=== PATIENT | female | born 1970 | race African-American/Black ===

== ENCOUNTER 2017-10-06 13:51 | Emergency (ER) | payer OTHER ==
[~2017-10-06] VITALS: Ht 160 cm; Wt 72.6 kg
[~2017-10-06 13:51] MED LIST: HYDROCHLOROTHIA25 MG ORAL; NORCO1 EA ORAL
[2017-10-06] MEDS ORDERED: LISINOPRIL20 MG ORAL (14:02)
[2017-10-06] MEDS ORDERED: UNOBMED (14:02)
[2017-10-06] MEDS ORDERED: Promethazine/Codeine 5ml UD ORAL ONE (14:30)
[2017-10-06 14:36] VITALS: BP 156/81
[2017-10-06] MEDS ORDERED: VENTOLIN HFA18 GM INH (14:49)
[2017-10-06] MEDS ORDERED: AMOXICILLIN500 MG ORAL (14:49)
[2017-10-06] MEDS ORDERED: PROMETHAZINE-C118 M1 ORAL (14:49)
[2017-10-06] MEDS ORDERED: PREDNISONE20 MG ORAL (14:49)
[2017-10-06 15:01] VITALS: BP 156/81
--- NOTE | 2017-10-06 16:11 | Emergency Room Report ---
History of Present Illness General Chief Complaint: Flu Like Symptoms Source: Patient Present Illness HPI 47-year-old female presents ED for evaluation. Patient presents with coughing, bodyaches, chills. Symptoms started approximately one month ago. Cough is productive with yellowish phlegm. Afebrile in triage. States that she was coughing so much she nearly passed out. Admits to smoking. Has an inhaler for when she does have coughing episodes. Denies history of asthma. Denies chest pain or shortness of breath. No other aggravating relieving factors. Denies any other systems symptoms Allergies: Coded Allergies: No Known Allergies (Unverified , 02/23/13) Patient History Past Medical History: none Past Surgical History: none Pertinent Family History: none Social History: Reports: smoking, Denies: alcohol use, drug use Last Menstrual Period: 09/11/17 Now: No Immunizations: UTD Reviewed Nursing Documentation: PMH: Agreed, PSxH: Agreed Nursing Documentation-PMH Hx Cardiac Problems: Yes - Heart murmur, syncope, bradycardia Hx Hypertension: Yes Review of Systems All Other Systems: negative except mentioned in HPI Physical Exam Vital Signs Date Time Temp Pulse Resp B/P (MAP) Pulse Ox O2 Delivery O2 Flow Rate FiO2 10/06/17 13:58 98.4 98 22 173/127 98 Room Air 98.4 Sp02 EP Interpretation: reviewed, normal General Appearance: no apparent distress, alert, GCS 15, non-toxic Head: normocephalic, atraumatic Eyes: bilateral eye normal inspection, bilateral eye PERRL ENT: hearing grossly normal, normal pharynx, no angioedema, normal voice Neck: full range of motion, supple/symm/no masses Respiratory: chest non-tender, lungs clear, normal breath sounds, speaking full sentences Cardiovascular #1: regular rate, rhythm, no edema Cardiovascular #2: 2+ carotid (R), 2+ carotid (L), 2+ radial (R), 2+ radial (L) , 2+ dorsalis pedis (R), 2+ dorsalis pedis (L) Gastrointestinal: normal bowel sounds, non tender, soft, non-distended, no guarding, no rebound Rectal: deferred Genitourinary: normal inspection, no CVA tenderness Musculoskeletal: back normal, gait/station normal, normal range of motion, non- tender Neurologic: alert, oriented x3, responsive, motor strength/tone normal, sensory intact, speech normal Psychiatric: judgement/insight normal, memory normal, mood/affect normal, no suicidal/homicidal ideation Reflexes: 3+ bicep (R), 3+ bicep (L), 3+ tricep (R), 3+ tricep (L), 3+ knee (R) , 3+ knee (L) Skin: normal color, no rash, warm/dry, well hydrated Lymphatic: no adenopathy Medical Decision Making Diagnostic Impression: Primary Impression: Atypical pneumonia ER Course Hospital Course 47-year-old female presents ED complaining of bodyaches and cough x 1 month Differential diagnoses include: URI, pharyngitis, otitis media, asthma Clinical course Patient placed on stretcher. After initial history, physical exam reveals a female in no acute distress. Bilateral TM unremarkable. No pharyngeal erythema. No tonsillar exudates. No lymphadenopathy. lungs clear. abdomen soft. Presentation consistent with atypical pneumonia. Given presentation, i will prescribe abx Given promethazine/codeine here. Given Zofran here Diagnosis - atypical pneumonia Stable and discharged home with Rx amoxicillin, prednisone, albuterol, promethazine/codeine. Instructed to followup with PMD. Return to ED if symptoms recur or worsen Last Vital Signs Date Time Temp Pulse Resp B/P (MAP) Pulse Ox O2 Delivery O2 Flow Rate FiO2 10/06/17 15:01 98.4 87 22 156/81 98 Room Air 98.4 Status: improved Disposition: HOME, SELF-CARE Condition: Stable Scripts Codeine/Promethazine Hcl* (PROMETHAZINE-CODEINE SYRUP*) 118 Ml Syrup 5 ML ORAL Q4H Y for For Cough, #118 ML 0 Refills Prov: ESSIE DEAL M.D. 10/06/17 Amoxicillin* (AMOXIL*) 500 Mg Capsule 500 MG ORAL THREE TIMES A DAY, #21 CAP Prov: ESSIE DEAL M.D. 10/06/17 Prednisone* (PREDNISONE*) 20 Mg Tablet 40 MG ORAL DAILY, #10 TAB Prov: ESSIE DEAL M.D. 10/06/17 Albuterol Sulfate (VENTOLIN HFA) 18 Gm Hfa.aer.ad 2 PUFFS INH EVERY 6 HOURS, #18 GM 0 Refills Prov: ESSIE DEAL M.D. 10/06/17 Patient Instructions: Acute Bronchitis, [id number] ESSIE DEAL M.D. Oct 06, 2017 16:10
== END 2017-10-06 15:18 | disposition home or self-care (01) ==
LOC: EMR 14:05
DX: J18.9 Pneumonia, unspecified organism (principal); I10 Essential (primary) hypertension
CPT/HCPCS: 96372; 99284; J2405

== ENCOUNTER 2018-03-20 08:26 | Emergency (ER) | payer OTHER ==
[~2018-03-20] VITALS: Ht 162.6 cm; Wt 76.7 kg
[~2018-03-20 08:26] MED LIST changes: +AMOXICILLIN500 MG ORAL; +LISINOPRIL20 MG ORAL; +PREDNISONE20 MG ORAL; +PROMETHAZINE-C118 M1 ORAL; +UNOBMED; +VENTOLIN HFA18 GM INH
[2018-03-20] MEDS ORDERED: NAPROXEN375 M2 ORAL (09:01)
--- NOTE | 2018-03-20 09:01 | Emergency Room Report ---
History of Present Illness General Chief Complaint: Lower Extremity Injury Source: Patient Present Illness HPI This patient fell directly onto knees about five days ago c/o continued pain/ difficulty walking. Using crutches to assist. Both hurt but right hurts more. No other issues, no other complaints. No head trauma. No shortness of breath, no chest pain, no nausea, no vomiting, no diarrhea, no abdominal pain, no syncope, LOC, dizziness, lightheadedness, headache. Allergies: Coded Allergies: No Known Allergies (Unverified , 02/23/13) Patient History Past Medical History: none Past Surgical History: none Now: No Nursing Documentation-PMH Hx Cardiac Problems: Yes - Heart murmur, syncope, bradycardia Hx Hypertension: Yes Review of Systems Constitutional: Denies: fever Eye: Denies: acuity changes Respiratory: Denies: cough, shortness of breath Cardiovascular: Denies: chest pain Gastrointestinal: Denies: nausea, vomiting Musculoskeletal: Reports: see HPI Skin: Denies: rash Neurological: Denies: headache All Other Systems: negative except mentioned in HPI Physical Exam Vital Signs Date Time Temp Pulse Resp B/P (MAP) Pulse Ox O2 Delivery O2 Flow Rate FiO2 03/20/18 08:29 98.5 55 18 176/87 98 Room Air 98.4 General Appearance: well appearing, no apparent distress Head: normocephalic, atraumatic ENT: hearing grossly normal, normal voice Neck: full range of motion, supple Respiratory: no respiratory distress, speaking full sentences Musculoskeletal: no calf tenderness - tenderness right prepatellar, mild prepatellar effusion. no ligament laxity, no soft tissue swelling, other Neurologic: alert, normal gait Psychiatric: mood/affect normal Skin: no rash Medical Decision Making Diagnostic Impression: Primary Impression: Right knee sprain ER Course exam c/w contusion and prepatellar effusion Other X-Ray Diagnostic Results Other X-Ray Diagnostic Results : X-Ray ordered: right knee # of Views/Limited Vs Complete: 3 View Indication: Pain EP Interpretation: Yes Interpretation: no dislocation, no soft tissue swelling, no fractures Last Vital Signs Date Time Temp Pulse Resp B/P (MAP) Pulse Ox O2 Delivery O2 Flow Rate FiO2 03/20/18 08:29 98.5 55 18 176/87 98 Room Air 98.4 Disposition: HOME, SELF-CARE Condition: Stable Scripts Naproxen* (NAPROXEN*) 375 Mg Tablet. 375 MG ORAL TWICE A DAY for 10 Days, #20 TAB Prov: Griffin Kirk M.D. 03/20/18 Referrals: [facility],REFERRING (PCP) Patient Instructions: Knee Sprain Griffin Kirk M.D. Mar 20, 2018 09:01
[2018-03-20 09:35] VITALS: BP 176/87
--- NOTE | 2018-03-20 10:59 | Diagnostic Imaging Report ---
Indications: Right knee pain Technique: Three views of the right knee Comparison: None Findings: No acute fractures. No dislocations. Joint spaces are preserved. No radiopaque foreign body. Normal mineralization. There are degenerative changes of the proximal tibiofibular articulation Impression: No acute process Degenerative changes of the tibiofibular articulation, as described
== END 2018-03-20 09:35 | disposition home or self-care (01) ==
LOC: EMR 08:47
DX: S83.91XA Sprain of unspecified site of right knee, initial encounter (principal); S80.01XA Contusion of right knee, initial encounter; M25.461 Effusion, right knee; W19.XXXA Unspecified fall, initial encounter; Y92.9 Unspecified place or not applicable; Z87.898 Personal history of other specified conditions
CPT/HCPCS: 99283

== ENCOUNTER 2019-03-18 13:31 | Emergency (ER) | payer OTHER ==
[~2019-03-18] VITALS: Ht 160 cm; Wt 74.4 kg
[~2019-03-18 13:31] MED LIST changes: +NAPROXEN375 M2 ORAL
--- NOTE | 2019-03-18 13:47 | NUR ---
ED Nurse Note: PT WALKED IN TO ER TODAY FROM HOME. AOX4. PT C/O ABSCESS ON DORSAL SURFACE OF RIGHT FOOT X 1 YEAR AGO. PT STATES SHE FEELS LIKE THE ABSCESS "POPPED" LAST NIGHT. NO ACTIVE DRAINAGE OR BLEEDING. SMALL MASS NOTED TO RIGHT FOOT. PT STATES SHE HAS HAD THE ABSCESS DRAINED IN THE PAST AND THINKS IT NEEDS TO BE DONE AGAIN. PT C/O PAIN 4/10. GAIT STEADY. CIRCULATION AND SENSATION INTACT, CAP REFILL <2 SECONDS, FULL MOTILITY OF EXTREMITY AND DIGITS.
[2019-03-18 13:50] VITALS: BP 128/62
[2019-03-18] MEDS ORDERED: IBUPROFEN600 MG ORAL (14:25)
--- NOTE | 2019-03-18 14:25 | Emergency Room Report ---
History of Present Illness General Chief Complaint: Pain Present Illness HPI 48-year-old female with no significant past medical history here complaining of minimal pain and discomfort in the right foot that has been increasing for the past few days. Patient reports that she has had a mobile cyst on her right foot for the past year however has not seek any medical attention. Reports that lately she started feeling more discomfort at the site of the cyst however denies pain radiation has not taken any medication for pain. Denies tingling and numbness. Denies pus drainage, erythema at the site of the cyst, fever and chills. Patient reports that she was recently diagnosed with uterine cancer and has pending status and hysterectomy. Patient is in no apparent distress. Denies recent injury and tingling and numbness. (Fabrizio Alejandre) Allergies: Coded Allergies: No Known Allergies (Unverified , 02/23/13) Patient History Past Medical History: see triage record Past Surgical History: unable to obtain Pertinent Family History: none Last Menstrual Period: mar 2019 Now: No Immunizations: UTD Reviewed Nursing Documentation: PMH: Agreed; PSxH: Agreed (Fabrizio Alejandre) Nursing Documentation-PMH Hx Cardiac Problems: Yes - Heart murmur, syncope, bradycardia Hx Hypertension: Yes (Fabrizio Alejandre) Review of Systems All Other Systems: negative except mentioned in HPI (Fabrizio Alejandre) Physical Exam Vital Signs Date Time Temp Pulse Resp B/P (MAP) Pulse Ox O2 Delivery O2 Flow Rate FiO2 03/18/19 13:38 98.8 56 16 134/59 (84) 97 Room Air Sp02 EP Interpretation: reviewed, normal General Appearance: no apparent distress, alert, GCS 15, non-toxic Head: normocephalic, atraumatic ENT: hearing grossly normal, normal pharynx, no angioedema, normal voice Neck: full range of motion, supple/symm/no masses Respiratory: normal inspection, chest non-tender, lungs clear, no rhonchi, no retraction, no wheezing Cardiovascular #1: regular rate, rhythm, no edema Cardiovascular #2: 2+ dorsalis pedis (R), 2+ dorsalis pedis (L) Gastrointestinal: normal inspection, non tender, soft Genitourinary: no CVA tenderness Musculoskeletal: back normal, digits/nails normal, gait/station normal, normal range of motion, other - Mobile noninfected cyst noted on dorsum of right foot Neurologic: normal inspection, alert, oriented x3 Psychiatric: normal inspection, judgement/insight normal Skin: no rash Lymphatic: normal inspection, no adenopathy (Fabrizio Alejandre) Medical Decision Making PA Attestation All diagnoses and treatment plans were reviewed and discussed with my supervising physician Dr. Schrader (Fabrizio Alejandre) Diagnostic Impression: Primary Impression: Epidermal cyst ER Course 48-year-old female with no significant past medical history here complaining of minimal pain and discomfort in the right foot that has been increasing for the past few days. Patient reports that she has had a mobile cyst on her right foot for the past year however has not seek any medical attention. Reports that lately she started feeling more discomfort at the site of the cyst however denies pain radiation has not taken any medication for pain. Denies tingling and numbness. Denies pus drainage, erythema at the site of the cyst, fever and chills. Patient reports that she was recently diagnosed with uterine cancer and has pending status and hysterectomy. Patient is in no apparent distress. Denies recent injury and tingling and numbness. Ddx considered but are not limited to : Cellulitis, abscess, sebaceous cyst, epidermal cyst, lipoma Vital signs: are WNL, pt. is afebrile H&PE are most consistent with: Epidermal cyst ORDERS: Right foot x-ray, ibuprofen ED INTERVENTIONS: None required at this time. DISCHARGE: At this time pt. is stable for d/c to home. Will provide printed patient care instructions, and any necessary prescriptions. Care plan and follow up instructions have been discussed with the patient prior to discharge. I advised the patient to follow-up with a dye weigher helper as this is not a persistent needs to be trained and is not infected. Follow-up with dye weigher helper if worsening symptoms return to the emergency room take medication as directed. (Fabrizio Alejandre) Other X-Ray Diagnostic Results Other X-Ray Diagnostic Results : X-Ray ordered: Right foot # of Views/Limited Vs Complete: 3 View Indication: Pain EP Interpretation: Yes PA Xray: Interpretation reviewed, by supervising MD, and agrees with findings. Interpretation: no dislocation, no soft tissue swelling, no fractures Impression: No acute disease Electronically Signed by: Fabrizio Savage PA-C (Fabrizio Alejandre) Other X-Ray Diagnostic Results : Electronically Signed by: Erik Knox documentation of Xray reviewed by me and is accurate, Nadeem Schrader MD (Nadeem Schrader MD) Last Vital Signs Date Time Temp Pulse Resp B/P (MAP) Pulse Ox O2 Delivery O2 Flow Rate FiO2 03/18/19 13:50 98.6 62 17 128/62 99 Room Air (Fabrizio Alejandre) Disposition: HOME, SELF-CARE Condition: Stable Scripts Ibuprofen* (MOTRIN*) 600 Mg Tablet 600 MG ORAL Q8H PRN for For Pain, #30 TAB 0 Refills Prov: Fabrizio Alejandre 03/18/19 Patient Instructions: Epidermal Cyst, [id number] Additional Instructions: Take medication as directed follow-up with a dye weigher helper. Fabrizio Alejandre Mar 18, 2019 14:25 Nadeem Schrader MD Mar 19, 2019 01:08
--- NOTE | 2019-03-18 14:29 | NUR ---
ED Nurse Note: PT LAYING PEACEFULLY IN BED IN NAD. AOX4. PRESCRIPTION AND DISCHARGE PAPERWORK GIVEN TO PT. PT VERBALIZES UNDERSTANDING AND ALL QUESTIONS ANSWERED. PRESCRIPTION AND DISCHARGE PAPERWORK GIVEN TO PT AND ID WRISTBAND REMOVED. PT WALKED OUT OF ER WITH STEADY GAIT AND ALL BELONGINGS.
[2019-03-18 14:30] VITALS: BP 126/64
--- NOTE | 2019-03-18 15:23 | Diagnostic Imaging Report ---
Indication: Foot Pain Comparison: None Findings: 3 views of the right foot were obtained. No acute fractures, malalignment, erosions or periostitis are identified. Impression: No acute findings.
== END 2019-03-18 14:30 | disposition home or self-care (01) ==
LOC: EMR 14:20
DX: C55 Malignant neoplasm of uterus, part unspecified (principal); L72.8 Other follicular cysts of the skin and subcutaneous tissue; I10 Essential (primary) hypertension; R01.1 Cardiac murmur, unspecified
CPT/HCPCS: 99283

== ENCOUNTER 2019-05-03 14:15 | Inpatient (IN) | payer OTHER ==
[~2019-05-03] VITALS: Ht 160 cm; Wt 75.7 kg
[~2019-05-03 14:15] MED LIST changes: +IBUPROFEN600 MG ORAL
[2019-05-03] MEDS ORDERED: Ipratropium 0.02% Inh Soln 2.5ml UD HHN ONE (14:45)
[2019-05-03] MEDS ORDERED: Omnipaque-300 100ml vial INJ ONE (14:45)
[2019-05-03] MEDS ORDERED: Morphine Sulfate 4mg/ml Inj (IV USE ONLY) IVP ONE ×2 (14:45→20:15)
[2019-05-03] MEDS ORDERED: Albuterol ud Inhalation HHN ONE (14:45)
[2019-05-03 15:17] LABS: BASOPHILS % (AUTO) 1.1 % (0.0-2.0); EOSINOPHILS % (AUTO) 1.1 % (0.0-3.0); HEMATOCRIT 37.4 % (37.0-47.0); HEMOGLOBIN 12.1 G/DL (12.0-16.0); LYMPHOCYTES % (AUTO) 33.5 % (20.0-45.0); MEAN CORPUSCULAR VOLUME 96 FL (80-99); MONOCYTES % (AUTO) 7.4 % (1.0-10.0); NEUTROPHILS % (AUTO) 56.9 % (45.0-75.0); PLATELET COUNT 237 K/UL (150-450); RED CELL DISTRIBUTION WIDTH 12.1 % (11.6-14.8); WHITE BLOOD COUNT 6.5 K/UL (4.8-10.8)
--- NOTE | 2019-05-03 15:30 | NUR ---
ED Nurse Note:pt. came with c/o chest pain, blood and urine sent to labs
[2019-05-03 15:32] LABS: ANION GAP 8 mmol/L (5-15); BLOOD UREA NITROGEN 10 mg/dL (7-18); CALCIUM 9.5 MG/DL (8.5-10.1); CARBON DIOXIDE 27 MMOL/L (21-32); CHLORIDE 103 MMOL/L (98-107); CREATININE 0.7 MG/DL (0.55-1.30); POTASSIUM 3.5 MMOL/L (3.5-5.1); SODIUM 138 MMOL/L (136-145)
[2019-05-03 15:48] LABS: ALANINE AMINOTRANSFERASE 22 U/L (12-78); ALBUMIN 3.1 G/DL (3.4-5.0); ALBUMIN/GLOBULIN RATIO 0.7 (1.0-2.7); ALKALINE PHOSPHATASE 48 U/L (46-116); ASPARTATE AMINO TRANSFERASE 14 U/L (15-37); BILIRUBIN,TOTAL 0.3 MG/DL (0.2-1.0); CKMB 1.7 NG/ML (0.0-3.6); CREATINE KINASE 95 U/L (26-308)
[2019-05-03 16:03] LABS: APPEARANCE,URINE CLEAR; BILIRUBIN, URINE NEGATIVE (NEGATIVE); COLOR,URINE PALE YELLOW; GLUCOSE, URINE (UA) NEGATIVE (NEGATIVE); KETONES,URINE NEGATIVE (NEGATIVE); LEUKOCYTE ESTERASE ,URINE NEGATIVE (NEGATIVE); NITRITE,URINE NEGATIVE (NEGATIVE); PH,URINE 7 (4.5-8.0); PROTEIN,URINE NEGATIVE (NEGATIVE); UROBILINOGEN,URINE NORMAL MG/DL (0.0-1.0)
[2019-05-03 16:37] VITALS: BP 183/89
--- NOTE | 2019-05-03 17:00 | NUR ---
ED Nurse Note:pt. went to CT chest
--- NOTE | 2019-05-03 18:05 | Diagnostic Imaging Report ---
CLINICAL INDICATION:Pain, shortness of breath, pelvic pain status post hysterectomy TECHNIQUE: No oral contrast, per emergency room physician request. Multiphasic spiral acquisitions obtained through the chest, abdomen, and pelvis. Multiplanar reconstructions were generated. Total dose length product 3693 mGycm. CTDIvol(s) 76 mGy. Radiation dose was minimized using automated exposure control COMPARISON: none FINDINGS Chest: There is a 3 mm nodule in the posterior superior left upper lobe, image 10 of series 16. There are posterior dependent atelectatic changes bilaterally, as well as likely scarring at the right lung base. Lungs and pleural spaces are otherwise clear. The heart size is normal. No pericardial effusion. No mediastinal or hilar mass or adenopathy. No axillary or chest wall mass or adenopathy. The bones are unremarkable. Abdomen pelvis: The uterus has been removed. There is a fluid collection within the pelvis. This measures 6.8 x 3.3 x 2.4 cm. It demonstrates a thin but enhancing rim. There is wall thickening of the adjacent sigmoid colon. There are colonic diverticula. The appendix is normal. Distal small bowel loops are somewhat fluid filled, otherwise unremarkable. No free intraperitoneal gas. The distal esophagus, stomach, duodenum are unremarkable. The liver, gallbladder, bile ducts, pancreas, spleen, adrenals are unremarkable. The right kidney demonstrates a cortical scar in the right upper pole. There is a punctate calcification in the right upper pole calyx. There is a small cyst in the right interpolar region. There are bilateral subcentimeter low-attenuation lesions which are too small to characterize. No retroperitoneal or mesenteric mass or adenopathy. There is a 2.5 cm right ovarian cyst. The uterus is absent. IMPRESSION: 6.8 x 3.3 x 2.4 cm fluid collection in the pelvis.. For the electronic medical record, patient underwent hysterectomy 5 days ago. Adjacent colonic wall thickening, likely reactive This could represent a routine postoperative fluid collection/seroma. However, the possibility of abscess should also be considered. Correlate with clinical findings Peridiverticular abscess deemed less likely No acute thoracic process Colonic diverticulosis Right renal cysts. Bilateral subcentimeter low-attenuation renal lesions, too small to characterize, most likely benign simple cyst. No further follow-up necessary. Right renal cortical scarring. Nonobstructive right upper pole calyceal calcification The above findings are in agreement with the [facility] preliminary report with additional nonsignificant findings 3 mm left upper lobe nodule. No further follow-up necessary if there is no significant smoking history or other risk factors for lung carcinoma. Recommend short interval 6-12 month follow-up if there are significant risk factors This was not described in the preliminary report; Dr. Muir was notified at the time of interpretation The CT scanner at [facility] is accredited by the [employer] and the scans are performed using protocols designed to limit radiation exposure to as low as reasonably achievable to attain images of sufficient resolution adequate for diagnostic evaluation.
--- NOTE | 2019-05-03 19:15 | NUR ---
ED Nurse Note: RECIEVED REPORT TO RESUME CARE, PT IN BED AWAKE, ALERT AND ORIENTED X 4, PT HERE WITH ABD PAIN AND BEING ADMITTED, PT IS WAITING FOR ADMISSION PROCESS TO COMPLETE, HAS MILD ABD PAIN AT 4/10, B/P IS SLIGHTLY ELEVATED, PT HAS HX OF HTN, MD INFORMED, WILL MEDICATE ORDERED, MONITOR FOR MED EFFECTIVENESS AND PREPARE FOR ADMISSION, PT HAS PATENT IV LINE IN RIGHT AC.
[2019-05-03 19:30] VITALS: BP 168/96
[2019-05-03] MEDS ORDERED: Piperacillin/Tazobactam 3.375 GM in NS 110 ML IVPB ONE (20:00)
[2019-05-03 20:45] VITALS: BP 155/86
[2019-05-03] MEDS ORDERED: Miralax 17gm pkt ORAL PRN (20:45)
[2019-05-03] MEDS ORDERED: Nitroglycerin Subl 0.4mg tab SL PRN (20:45)
--- NOTE | 2019-05-03 20:45 | NUR ---
ED Nurse Note: PT HAS ROOM FOR ADMISISON, REPORT CALLED OT FLOOR NURSE, BELONGINGS LIST COMPLETED, MED REC ALSO AND PT SWABBED, IV SITE PATENT, COMPLETED IV ZOSYN WITH NO S/S OF ADVERSE REACTION NOTED, PT MEDICATED FOR PAIN AND NAUSEA, MEDS EFFECTIVE, PT BEING TAKEN TO FLOOR UNIT VIA GURNEY WITH [facility], NAD NOTED DURING PT TRANSPORT.
[2019-05-03] MEDS: Heparin 5000 units/ml inj SUBQ SCH (21:00)
--- NOTE | 2019-05-03 21:00 | NUR ---
NURSE NOTES: Received report from Arabella FLORES from [facility]
--- NOTE | 2019-05-03 21:03 | Emergency Room Report ---
History of Present Illness General Chief Complaint: Chest Pain Source: Patient Present Illness HPI 49-year-old female presents ED for evaluation. Patient walked in complaining of abdominal pain shortness of breath. States that symptoms started today. Patient states she had a hysterectomy 5 days ago at [facility]. Denies fevers or chills. States she feels short of breath when walking. History of asthma. Denies cough. Denies nausea or vomiting. Denies diarrhea. No other aggravating relieving factors. Denies any other associated symptoms Allergies: Coded Allergies: KETOROLAC (Verified Allergy, Unknown, Shortness of Breath, 05/03/19) throat closes up Patient History Past Medical History: HTN Past Surgical History: other - hysterectomy Pertinent Family History: none Now: No Immunizations: UTD Reviewed Nursing Documentation: PMH: Agreed; PSxH: Agreed Nursing Documentation-PMH Hx Cardiac Problems: Yes - Heart murmur, syncope, bradycardia Hx Hypertension: Yes Review of Systems All Other Systems: negative except mentioned in HPI Physical Exam Vital Signs Date Time Temp Pulse Resp B/P (MAP) Pulse Ox O2 Delivery O2 Flow Rate FiO2 05/03/19 14:35 97.7 50 16 183/89 (120) 100 Room Air 05/03/19 14:59 21 Sp02 EP Interpretation: reviewed, normal General Appearance: no apparent distress, alert, GCS 15, non-toxic Head: normocephalic, atraumatic Eyes: bilateral eye normal inspection, bilateral eye PERRL ENT: hearing grossly normal, normal pharynx, no angioedema, normal voice Neck: full range of motion, supple/symm/no masses Respiratory: chest non-tender, lungs clear, normal breath sounds, speaking full sentences Cardiovascular #1: regular rate, rhythm, no edema Cardiovascular #2: 2+ carotid (R), 2+ carotid (L), 2+ radial (R), 2+ radial (L) , 2+ dorsalis pedis (R), 2+ dorsalis pedis (L) Gastrointestinal: normal bowel sounds, soft, non-distended, no guarding, no rebound, tenderness Rectal: deferred Genitourinary: normal inspection, no CVA tenderness Musculoskeletal: back normal, gait/station normal, normal range of motion, non- tender Neurologic: alert, oriented x3, responsive, motor strength/tone normal, sensory intact, speech normal Psychiatric: judgement/insight normal, memory normal, mood/affect normal, no suicidal/homicidal ideation Reflexes: 3+ bicep (R), 3+ bicep (L), 3+ tricep (R), 3+ tricep (L), 3+ knee (R) , 3+ knee (L) Lymphatic: no adenopathy Medical Decision Making Diagnostic Impression: Primary Impression: Postoperative abscess Additional Impression: S/P hysterectomy ER Course Hospital Course 49-year-old female presents ED complaining of shortness of breath, abdominal pain. 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 After initial history and physical I ordered labs, IV fluids, pain medication and CT scan Labs - no leukocytosis, Hb/Hct stable. electrolytes ok, trop negative EKG - sinus bradycardia no acute ischemic changes interpreted by me CXR - no acute process CTA chest/abd/pelvis -no evidence of PE, rim-enhancing collection in the pelvis close to site of hysterectomy Concerning for postoperative infection. Discussed with Dr. Raya who will consult. abx given. Case discussed with Dr. Palumbo and he agreed to accept the patient to his service for further care and support I feel this is a highly complex case requiring extensive working including EKG/ Rhythm strip, Xray/CT/US, Blood/urine lab work, repeat exams while in ED, and administration of strong opiates/narcotics for pain control, admission to hospital or close patient follow up. Diagnosis - postoperative abscess, status post hysterectomy Patient admitted to floor in serious condition Labs Test 05/03/19 14:55 05/03/19 15:30 White Blood Count 6.5 K/UL (4.8-10.8) Red Blood Count 3.90 M/UL (4.20-5.40) Hemoglobin 12.1 G/DL (12.0-16.0) Hematocrit 37.4 % (37.0-47.0) Mean Corpuscular Volume 96 FL (80-99) Mean Corpuscular Hemoglobin 31.1 PG (27.0-31.0) Mean Corpuscular Hemoglobin Concent 32.4 G/DL (32.0-36.0) Red Cell Distribution Width 12.1 % (11.6-14.8) Platelet Count 237 K/UL (150-450) Mean Platelet Volume 8.4 FL (6.5-10.1) Neutrophils (%) (Auto) 56.9 % (45.0-75.0) Lymphocytes (%) (Auto) 33.5 % (20.0-45.0) Monocytes (%) (Auto) 7.4 % (1.0-10.0) Eosinophils (%) (Auto) 1.1 % (0.0-3.0) Basophils (%) (Auto) 1.1 % (0.0-2.0) Sodium Level 138 MMOL/L (136-145) Potassium Level 3.5 MMOL/L (3.5-5.1) Chloride Level 103 MMOL/L (98-107) Carbon Dioxide Level 27 MMOL/L (21-32) Anion Gap 8 mmol/L (5-15) Blood Urea Nitrogen 10 mg/dL (7-18) Creatinine 0.7 MG/DL (0.55-1.30) Estimat Glomerular Filtration Rate > 60 mL/min (>60) Glucose Level 122 MG/DL (74-106) Calcium Level 9.5 MG/DL (8.5-10.1) Total Bilirubin 0.3 MG/DL (0.2-1.0) Aspartate Amino Transf (AST/SGOT) 14 U/L (15-37) Alanine Aminotransferase (ALT/SGPT) 22 U/L (12-78) Alkaline Phosphatase 48 U/L (46-116) Total Creatine Kinase 95 U/L (26-308) Creatine Kinase MB 1.7 NG/ML (0.0-3.6) Creatine Kinase MB Relative Index 1.7 Troponin I 0.000 ng/mL (0.000-0.056) Pro-B-Type Natriuretic Peptide 98 pg/mL (0-125) Total Protein 7.3 G/DL (6.4-8.2) Albumin 3.1 G/DL (3.4-5.0) Globulin 4.2 g/dL Albumin/Globulin Ratio 0.7 (1.0-2.7) Urine Color Pale yellow Urine Appearance Clear Urine pH 7 (4.5-8.0) Urine Specific [place] 1.010 (1.005-1.035) Urine Protein Negative (NEGATIVE) Urine Glucose (UA) Negative (NEGATIVE) Urine Ketones Negative (NEGATIVE) Urine Blood 4+ (NEGATIVE) Urine Nitrite Negative (NEGATIVE) Urine Bilirubin Negative (NEGATIVE) Urine Urobilinogen Normal MG/DL (0.0-1.0) Urine Leukocyte Esterase Negative (NEGATIVE) Urine RBC 10-15 /HPF (0 - 2) Urine WBC 0-2 /HPF (0 - 2) Urine Squamous Epithelial Cells Many /LPF (NONE/OCC) Urine Bacteria Few /HPF (NONE) EKG Diagnostic Results Rate: bradycardiac Rhythm: NSR ST Segments: no acute changes ASA given to the pt in ED: No Rhythm Strip Diag. Results EP Interpretation: yes Rhythm: NSR, no PVC's, no ectopy Chest X-Ray Diagnostic Results Chest X-Ray Diagnostic Results : Chest X-Ray Ordered: Yes # of Views/Limited/Complete: 1 View Indication: Chest Pain EP Interpretation: Yes Interpretation: no consolidation, no effusion, no pneumothorax, no acute cardiopulmonary disease Impression: No acute disease CT/MRI/US Diagnostic Results CT/MRI/US Diagnostic Results : Imaging Test Ordered: CTA chest/abd/pelvis Impression CHEST: Mediastinum :Normal. Nicolasa: Normal Lungs: mild subpleural lines and subsegmental atelectasis in the right greater than left bilateral lower lobes Pleura: Normal Bones: Normal Chest wall: Normal ABDOMEN: Liver: Normal Gallbladder and bile ducts: Normal Pancreas: Normal Spleen: Normal Adrenals: Normal . Kidneys and ureters: Punctate nonobstructing stone in the superior pole right kidney, with mild renal cortical scarring and bilateral renal cortical cysts, largest measuring 12 mm in the midpole right kidney. No hydronephrosis or hydroureter. Stomach and bowel: Sigmoid colon and rectum are collapsed and show mild wall thickening adjacent to a fluid collection in the posterior cul-de- sac. There is mild pericolonic stranding. The rest of the bowel is otherwise normal Appendix: Normal PELVIS: Bladder: Normal Reproductive: Absent uterus. In the posterior cul-de-sac, rim-enhancing fluid collection measuring 4.4 x 3.8 x 2.1 cm is noted. There is adjacent soft tissue stranding. Last Vital Signs Date Time Temp Pulse Resp B/P (MAP) Pulse Ox O2 Delivery O2 Flow Rate FiO2 05/03/19 20:23 168/96 05/03/19 19:30 98.3 53 16 100 Room Air 21 Status: improved Disposition: ADMITTED INPATIENT Condition: Serious Referrals: [facility],REFERRING (PCP) Justin Salazar MD May 03, 2019 21:03
--- NOTE | 2019-05-03 21:30 | NUR ---
NURSE NOTES: Received patient via hospital bed. Patient is awake, alert x 4. Able to make needs known. Complained of pain 7/10 at the moment. Will check orders. IV site patent. Skin is warm and dry to touch. Noted with surgical wounds that are healed on the abdomen. Abdomen soft but pain on light palpation. Patient has flatus. Respiration is even and unlabored. Bed in low and locked position. Provided safe environment. All belongings with the patient, signed. Noted with upper denture, patient is wearing them. No lawler noted. Introduced patient to the room, educated patient regarding NPO order. Patient understood. call light is at bedside.
[2019-05-03] MEDS: D5 1/2NS 1,000 ML IV SCH (21:53)
[2019-05-03] MEDS: Morphine Sulfate 2mg/ml Inj(IV/IM USE ONLY) IVP PRN (21:56)
[2019-05-03] MEDS ORDERED: Albuterol 90mcg Inhaler 8gm INH PRN (22:00)
[2019-05-03 23:31] VITALS: BP 152/83
[2019-05-04] MEDS: Morphine Sulfate 2mg/ml Inj(IV/IM USE ONLY) IVP PRN ×3 (02:45→10:41)
--- NOTE | 2019-05-04 03:00 | NUR ---
NURSE NOTES: Patient complained of pain, 10/10 given PRn pain medication as ordered. Patient is awake, alert and verbally responsive. Call light is at bedside. Will reassess.
[2019-05-04 04:00] VITALS: BP 130/82
--- NOTE | 2019-05-04 06:13 | NUR ---
NURSE NOTES: Patient complained of abdominal pain, 10/10, guarding site. Will give PRN pain medication as ordered.
[2019-05-04 06:38] LABS: BASOPHILS % (AUTO) 1.6 % (0.0-2.0); EOSINOPHILS % (AUTO) 1.2 % (0.0-3.0); HEMATOCRIT 36.1 % (37.0-47.0); LYMPHOCYTES % (AUTO) 31.7 % (20.0-45.0); MEAN CORPUSCULAR VOLUME 95 FL (80-99); MONOCYTES % (AUTO) 8.5 % (1.0-10.0); NEUTROPHILS % (AUTO) 57.1 % (45.0-75.0); PLATELET COUNT 230 K/UL (150-450); RED CELL DISTRIBUTION WIDTH 12.4 % (11.6-14.8); WHITE BLOOD COUNT 5.9 K/UL (4.8-10.8)
[2019-05-04 06:44] LABS: ALANINE AMINOTRANSFERASE 20 U/L (12-78); ALBUMIN/GLOBULIN RATIO 0.8 (1.0-2.7); ALKALINE PHOSPHATASE 42 U/L (46-116); AMYLASE 104 U/L (25-115); ANION GAP 8 mmol/L (5-15); ASPARTATE AMINO TRANSFERASE 13 U/L (15-37); BILIRUBIN,TOTAL 0.3 MG/DL (0.2-1.0); BLOOD UREA NITROGEN 5 mg/dL (7-18); CALCIUM 9.1 MG/DL (8.5-10.1); CARBON DIOXIDE 29 MMOL/L (21-32); CHLORIDE 104 MMOL/L (98-107); CREATININE 0.7 MG/DL (0.55-1.30); POTASSIUM 3.4 MMOL/L (3.5-5.1); SODIUM 140 MMOL/L (136-145)
--- NOTE | 2019-05-04 07:12 | NUR ---
HAND-OFF: Report given to SANDRA Lindsey.
--- NOTE | 2019-05-04 07:17 | NUR ---
NURSE NOTES: Patient is in bed awake and able to verbalize needs. Stable. Denies pain or SOB. Patient stated, "I'm hungry and they wont let me eat." Patient aware of all risks and benefits of NPO diet. Patient verbalized understanding. Plan of care discussed with patient, patient verbalized understanding. Patient encouraged to use call light for assistance, patient stated that she will call if she needs anything. Patient is in bed in locked and lowest position with call light within reach. All needs met at this time. Will continue to monitor.
[2019-05-04 08:00] VITALS: BP 152/77
[2019-05-04] MEDS: Heparin 5000 units/ml inj SUBQ SCH (09:00)
[2019-05-04] MEDS ORDERED: Pantoprazole Inj IVP SCH (09:00)
[2019-05-04] MEDS ORDERED: Lisinopril 20mg tab ORAL SCH (09:00)
[2019-05-04] MEDS: D5 1/2NS 1,000 ML IV SCH (10:44)
--- NOTE | 2019-05-04 10:48 | NUR ---
NURSE NOTES: Patient is upset about being NPO. Patient is also irritable about her abdominal pain. RN administered pain medication as ordered, tolerated well. Patient stated, "I'm not trying to stay here for 4 more hours. I want to get out of here and eat." Patient is aware of plan of care and purpose of being NPO. Patient understands pain medication administration schedule. All comfort measures provided, patient is still upset. Will continue to monitor patient.
--- NOTE | 2019-05-04 11:11 | Diagnostic Imaging Report ---
Indication: Shortness of breath Technique: One view of the chest Comparison: none Findings: The heart is enlarged. Lungs and pleural spaces are clear. Impression: Cardiomegaly. No acute process
--- NOTE | 2019-05-04 11:23 | GI Initial Consult Note ---
History of Present Illness General Date patient seen: May 04, 2019 Time patient seen: 11:19 Reason for Hospitalization: Chest Pain Referring physician: FERNANDO MCCLELLAN Reason for Consultation: ABDOMINAL PAIN Present Illness HPI 49-year-old female presents ED for evaluation. Patient walked in complaining of abdominal pain shortness of breath. States that symptoms started today. Patient states she had a hysterectomy 5 days ago at [facility]. Denies fevers or chills. States she feels short of breath when walking. History of asthma. Denies cough. Denies nausea or vomiting. Denies diarrhea. No other aggravating relieving factors. Denies any other associated symptoms GI consulted for abdominal pain. Patient seen, awake alert oriented x4 no apparent distress with no active signs symptoms of nausea vomiting. The patient has complaint of extreme hunger. Abdomen was assessed, soft distended with mild tympany in all quadrants. Patient stated her last bowel movement was approximately 3 days ago which was scant. Abdominal pelvis CT was performed noted that the patient had a fluid collection in the posterior cul-de-sac following her prior hysterectomy which possibly could have been a postoperative abscess. No history of endoscopic or colonoscopy. Home Meds Active Scripts Albuterol Sulfate (VENTOLIN HFA) 18 Gm Hfa.aer.ad, 2 PUFFS INH EVERY 6 HOURS, # 18 GM 0 Refills Prov:Justin Salazar MD 10/06/17 Reported Medications Lisinopril (LISINOPRIL*) 20 Mg Tablet, 20 MG ORAL DAILY, TAB 10/06/17 Hydrochlorothiazide* (HYDROCHLOROTHIAZIDE*) 25 Mg Tablet, 25 MG ORAL DAILY, TAB 02/23/13 Discontinued Reported Medications Unable to Obtain Medications (UNABLE TO OBTAIN MEDS) 1 Ea Ea 10/06/17 Discontinued Scripts Ibuprofen* (MOTRIN*) 600 Mg Tablet, 600 MG ORAL Q8H PRN for For Pain, #30 TAB 0 Refills Prov:Fabrizio Alejandre 03/18/19 Naproxen* (NAPROXEN*) 375 Mg Tablet., 375 MG ORAL TWICE A DAY for 10 Days, # 20 TAB Prov:Griffin Kirk M.D. 03/20/18 Codeine/Promethazine Hcl* (PROMETHAZINE-CODEINE SYRUP*) 118 Ml Syrup, 5 ML ORAL Q4H PRN for For Cough, #118 ML 0 Refills Prov:Justin Salazar MD 10/06/17 Amoxicillin* (AMOXIL*) 500 Mg Capsule, 500 MG ORAL THREE TIMES A DAY, #21 CAP Prov:Justin Salazar MD 10/06/17 Prednisone* (PREDNISONE*) 20 Mg Tablet, 40 MG ORAL DAILY, #10 TAB Prov:Justin Salazar MD 10/06/17 Hydrocodone/Acetaminophen 5-325* (NORCO 5-325*) 1 Ea Tab, 1 TAB ORAL Q6H for 7 Days, TAB Prov:JORGE L YORK 02/23/13 Med list reviewed/reconciled: Yes Allergies: Coded Allergies: KETOROLAC (Verified Allergy, Unknown, Shortness of Breath, 05/03/19) throat closes up Patient History History Provided By: Patient PMH Narrative Past Medical History: HTN Past Surgical History: other - hysterectomy Pertinent Family History: none Now: No Immunizations: UTD Reviewed Nursing Documentation: PMH: Agreed; PSxH: Agreed Nursing Documentation-PMH Hx Cardiac Problems: Yes - Heart murmur, syncope, bradycardia Hx Hypertension: Yes Review of Systems All Other Systems: negative except mentioned in HPI Physical Exam Vital Signs Date Time Temp Pulse Resp B/P (MAP) Pulse Ox O2 Delivery O2 Flow Rate FiO2 05/03/19 14:35 97.7 50 16 183/89 (120) 100 Room Air 05/03/19 14:59 21 Sp02 EP Interpretation: reviewed, normal Labs Laboratory Tests Test 05/03/19 14:55 05/03/19 15:30 05/04/19 05:20 White Blood Count 6.5 K/UL (4.8-10.8) 5.9 K/UL (4.8-10.8) Red Blood Count 3.90 M/UL (4.20-5.40) L 3.80 M/UL (4.20-5.40) L Hemoglobin 12.1 G/DL (12.0-16.0) 12.0 G/DL (12.0-16.0) Hematocrit 37.4 % (37.0-47.0) 36.1 % (37.0-47.0) L Mean Corpuscular Volume 96 FL (80-99) 95 FL (80-99) Mean Corpuscular Hemoglobin 31.1 PG (27.0-31.0) H 31.6 PG (27.0-31.0) H Mean Corpuscular Hemoglobin Concent 32.4 G/DL (32.0-36.0) 33.2 G/DL (32.0-36.0) Red Cell Distribution Width 12.1 % (11.6-14.8) 12.4 % (11.6-14.8) Platelet Count 237 K/UL (150-450) 230 K/UL (150-450) Mean Platelet Volume 8.4 FL (6.5-10.1) 7.6 FL (6.5-10.1) Neutrophils (%) (Auto) 56.9 % (45.0-75.0) 57.1 % (45.0-75.0) Lymphocytes (%) (Auto) 33.5 % (20.0-45.0) 31.7 % (20.0-45.0) Monocytes (%) (Auto) 7.4 % (1.0-10.0) 8.5 % (1.0-10.0) Eosinophils (%) (Auto) 1.1 % (0.0-3.0) 1.2 % (0.0-3.0) Basophils (%) (Auto) 1.1 % (0.0-2.0) 1.6 % (0.0-2.0) Sodium Level 138 MMOL/L (136-145) 140 MMOL/L (136-145) Potassium Level 3.5 MMOL/L (3.5-5.1) 3.4 MMOL/L (3.5-5.1) L Chloride Level 103 MMOL/L (98-107) 104 MMOL/L (98-107) Carbon Dioxide Level 27 MMOL/L (21-32) 29 MMOL/L (21-32) Anion Gap 8 mmol/L (5-15) 8 mmol/L (5-15) Blood Urea Nitrogen 10 mg/dL (7-18) 5 mg/dL (7-18) L Creatinine 0.7 MG/DL (0.55-1.30) 0.7 MG/DL (0.55-1.30) Estimat Glomerular Filtration Rate > 60 mL/min (>60) > 60 mL/min (>60) Glucose Level 122 MG/DL (74-106) H 107 MG/DL (74-106) H Calcium Level 9.5 MG/DL (8.5-10.1) 9.1 MG/DL (8.5-10.1) Total Bilirubin 0.3 MG/DL (0.2-1.0) 0.3 MG/DL (0.2-1.0) Aspartate Amino Transf (AST/SGOT) 14 U/L (15-37) L 13 U/L (15-37) L Alanine Aminotransferase (ALT/SGPT) 22 U/L (12-78) 20 U/L (12-78) Alkaline Phosphatase 48 U/L (46-116) 42 U/L (46-116) L Total Creatine Kinase 95 U/L (26-308) Creatine Kinase MB 1.7 NG/ML (0.0-3.6) Creatine Kinase MB Relative Index 1.7 Troponin I 0.000 ng/mL (0.000-0.056) Pro-B-Type Natriuretic Peptide 98 pg/mL (0-125) Total Protein 7.3 G/DL (6.4-8.2) 6.9 G/DL (6.4-8.2) Albumin 3.1 G/DL (3.4-5.0) L 3.0 G/DL (3.4-5.0) L Globulin 4.2 g/dL 3.9 g/dL Albumin/Globulin Ratio 0.7 (1.0-2.7) L 0.8 (1.0-2.7) L Urine Color Pale yellow Urine Appearance Clear Urine pH 7 (4.5-8.0) Urine Specific [place] 1.010 (1.005-1.035) Urine Protein Negative (NEGATIVE) Urine Glucose (UA) Negative (NEGATIVE) Urine Ketones Negative (NEGATIVE) Urine Blood 4+ (NEGATIVE) H Urine Nitrite Negative (NEGATIVE) Urine Bilirubin Negative (NEGATIVE) Urine Urobilinogen Normal MG/DL (0.0-1.0) Urine Leukocyte Esterase Negative (NEGATIVE) Urine RBC 10-15 /HPF (0 - 2) H Urine WBC 0-2 /HPF (0 - 2) Urine Squamous Epithelial Cells Many /LPF (NONE/OCC) H Urine Bacteria Few /HPF (NONE) Activated Partial Thromboplast Time 29 SEC (23-33) Amylase Level 104 U/L (25-115) Lipase 97 U/L (73-393) General Appearance: well appearing, no apparent distress, alert Head: normocephalic EENT: PERRL/EOMI, normal ENT inspection Neck: supple Respiratory: normal breath sounds, no respiratory distress Cardiovascular: normal rate Gastrointestinal: normal inspection, non tender, soft, normal bowel sounds, non -distended Rectal: deferred Genitourinary: no CVA tenderness Musculoskeletal: normal inspection, back normal Neurologic: normal inspection, alert, oriented x3, responsive Psychiatric: normal inspection, judgement/insight normal, memory normal Skin: normal inspection, normal color, no rash, warm/dry, palpation normal, well hydrated Lymphatic: normal inspection, no adenopathy Current Medications Current Medications Medications (Trade) Dose Ordered Sig/Adry Route PRN Reason Start Time Stop Time Status Last Admin Dose Admin Acetaminophen (Tylenol) 650 mg Q4H PRN ORAL T>100.5 05/03/19 20:45 06/02/19 20:44 Albuterol Sulfate (Proventil MDI) 2 puff Q6H PRN INH Shortness of Breath 05/03/19 22:00 06/02/19 21:59 Dextrose (Dextrose 50%) 25 ml Q30M PRN IV Hypoglycemia 05/03/19 20:45 06/02/19 20:44 Dextrose (Dextrose 50%) 50 ml Q30M PRN IV Hypoglycemia 05/03/19 20:45 06/02/19 20:44 Dextrose/Sodium Chloride 1,000 ml @ 75 mls/hr [id number] IV 05/03/19 22:00 06/02/19 21:59 05/04/19 10:44 Diphenhydramine HCl (Benadryl) 25 mg Q6H PRN ORAL Itching/Pruritis 05/03/19 20:45 06/02/19 20:44 Heparin Sodium (Porcine) (Heparin 5000 units/ml) 5,000 units EVERY 12 HOURS SUBQ 05/03/19 21:00 06/02/19 20:59 Lisinopril (Prinivil) 20 mg DAILY ORAL 05/04/19 09:00 06/03/19 08:59 05/04/19 09:31 Morphine Sulfate (Morphine Sulfate) 2 mg Q4H PRN IVP Severe Pain (Pain Scale 7-10) 05/03/19 20:45 05/10/19 20:44 05/04/19 10:41 Nitroglycerin (Ntg) 0.4 mg Q5MIN X 3 DOSES PRN SL Prn Chest Pain 05/03/19 20:45 06/02/19 20:44 Ondansetron HCl (Zofran) 4 mg Q6H PRN IVP Nausea & Vomiting 05/03/19 20:45 06/02/19 20:44 Pantoprazole (Protonix) 40 mg DAILY IVP 05/04/19 09:00 06/03/19 08:59 05/04/19 09:31 Polyethylene Glycol (Miralax) 17 gm HSPRN PRN ORAL Constipation 05/03/19 20:45 06/02/19 20:44 Temazepam (Restoril) 15 mg HSPRN PRN ORAL Insomnia 05/03/19 20:45 05/10/19 20:44 GI: Plan Problems: (1) S/P hysterectomy (2) Postoperative abscess (3) Postoperative ileus Plan This is a 49-year-old female patient status post hysterectomy approximately 1 week presents with severe abdominal pain secondary to a postoperative infection versus postoperative ileus. bowel rest, maintain the patient n.p.o. plus IV fluids follow up surgical recommendations Pain management PPI Encourage ambulation abx We will follow with additional recommendations Discussed with Dr. Gaviria. Thank you for this patient referral, we will follow. The patient was seen and examined at bedside and all new and available data was reviewed in the patients chart. I agree with the above findings, impression and plan. (Patient seen earlier today. Signature stamp does not reflect patient encounter time.). - MD Vikki Mcekon,[facility] [employer] ATTENDANT May 04, 2019 11:23
--- NOTE | 2019-05-04 11:32 | Cardiology Report ---
APPROVED REPORT EKG Measurement Heart [id number] Sinus bradycardia Cannot rule out Anterior infarct, age undetermined Abnormal ECG
[2019-05-04 12:00] VITALS: BP 158/100
--- NOTE | 2019-05-04 12:42 | NUR ---
NURSE NOTES: Patient's sister called nurse's station and yelled at RN over the phone regarding patient's NPO status. RN explained purpose of NPO status to patient's sister. Patient's sister stated, "you are starving her to ." Patient and patient's sister aware of plan of care. IVF running as ordered. Patient is stable.
--- NOTE | 2019-05-04 13:10 | NUR ---
NURSE NOTES: Patient is upset and wants to leave AMA. Dr. Muir made aware. Dr. Muir explained plan of care to patient. Patient disagrees and continues to be upset. Patient removed IV. NO bleeding noted, site is clean and dry. Patient instructed to monitor site for bleeding or redness, verbalized understanding.
--- NOTE | 2019-05-04 13:18 | Consultation ---
History of Present Illness General Date patient seen: May 04, 2019 Chief Complaint: Chest Pain Referring physician: FERNANDO MCCLELLAN Reason for Consultation: ABDOMINAL PAIN Present Illness HPI 49-year-old female with recent hysterectomy at [facility] 5 days ago, presented to ED for evaluation of abdominal pain, shortness of breath. Denies fevers or chills. States she feels short of breath when walking. Her CT of abdomen showed fluids collection, therefore she is admitted for further evaluation. Allergies: Coded Allergies: KETOROLAC (Verified Allergy, Unknown, Shortness of Breath, 05/03/19) throat closes up Medication History Scheduled Albuterol Sulfate (Ventolin Hfa), 2 PUFFS INH EVERY 6 HOURS Hydrochlorothiazide* (Hydrochlorothiazide*), 25 MG ORAL DAILY, (Reported) Lisinopril (Lisinopril*), 20 MG ORAL DAILY, (Reported) Discontinued Medications Amoxicillin* (Amoxil*), 500 MG ORAL THREE TIMES A DAY Discontinued Reason: Therapy completed Codeine/Promethazine Hcl* (Promethazine-Codeine Syrup*), 5 ML ORAL Q4H PRN for For Cough Discontinued Reason: Therapy completed Hydrocodone/Acetaminophen 5-325* ([place] 5-325*), 1 TAB ORAL Q6H Discontinued Reason: Therapy completed Ibuprofen* (Motrin*), 600 MG ORAL Q8H PRN for For Pain Discontinued Reason: Therapy completed Naproxen* (Naproxen*), 375 MG ORAL TWICE A DAY Discontinued Reason: Therapy completed Prednisone* (Prednisone*), 40 MG ORAL DAILY Discontinued Reason: Therapy completed Unable to Obtain Medications (Unable To Obtain Meds), (Reported) Discontinued Reason: Therapy completed Patient History Healthcare decision maker Resuscitation status Advanced Directive on File Past Medical/Surgical History Past Medical/Surgical History: (1) S/P hysterectomy Review of Systems Constitutional: Reports: no symptoms Eye: Reports: no symptoms, discharge Physical Exam General Appearance: WD/WN, alert Lines, tubes and drains: peripheral HEENT: normocephalic, atraumatic Neck: non-tender, normal alignment Respiratory/Chest: chest wall non-tender, lungs clear Cardiovascular/Chest: normal peripheral pulses, regular rhythm Last 24 Hour Vital Signs Date Time Temp Pulse Resp B/P (MAP) Pulse Ox O2 Delivery O2 Flow Rate FiO2 05/04/19 12:00 98.3 61 18 158/100 (119) 100 05/04/19 09:31 152/77 05/04/19 09:00 Room Air 05/04/19 08:00 97.4 54 20 152/77 (102) 100 05/04/19 04:00 98.4 59 20 130/82 (98) 98 05/03/19 23:31 98.0 95 20 152/83 (106) 99 05/03/19 21:33 Room Air 05/03/19 21:00 98.3 59 20 155/86 100 Room Air 21 05/03/19 20:45 98.3 59 20 155/86 100 Room Air 21 05/03/19 20:23 168/96 05/03/19 19:30 98.3 53 16 168/96 100 Room Air 05/03/19 16:37 97.7 56 16 183/89 100 Room Air 21 05/03/19 16:36 56 16 Room Air 05/03/19 16:31 97.7 05/03/19 14:59 47 18 100 Room Air 21 50 16 100 05/03/19 14:59 50 16 100 Room Air 21 05/03/19 14:35 97.7 50 16 183/89 (120) 100 Room Air Intake and Output 05/03/19 05/04/19 19:00 07:00 Intake Total 675 ml Output Total 500 ml Balance 175 ml Intake IV Total 675 ml Output Urine Total 500 ml # Voids 1 2 Laboratory Tests Test 05/03/19 14:55 05/03/19 15:30 05/04/19 05:20 White Blood Count 6.5 K/UL (4.8-10.8) 5.9 K/UL (4.8-10.8) Red Blood Count 3.90 M/UL (4.20-5.40) L 3.80 M/UL (4.20-5.40) L Hemoglobin 12.1 G/DL (12.0-16.0) 12.0 G/DL (12.0-16.0) Hematocrit 37.4 % (37.0-47.0) 36.1 % (37.0-47.0) L Mean Corpuscular Volume 96 FL (80-99) 95 FL (80-99) Mean Corpuscular Hemoglobin 31.1 PG (27.0-31.0) H 31.6 PG (27.0-31.0) H Mean Corpuscular Hemoglobin Concent 32.4 G/DL (32.0-36.0) 33.2 G/DL (32.0-36.0) Red Cell Distribution Width 12.1 % (11.6-14.8) 12.4 % (11.6-14.8) Platelet Count 237 K/UL (150-450) 230 K/UL (150-450) Mean Platelet Volume 8.4 FL (6.5-10.1) 7.6 FL (6.5-10.1) Neutrophils (%) (Auto) 56.9 % (45.0-75.0) 57.1 % (45.0-75.0) Lymphocytes (%) (Auto) 33.5 % (20.0-45.0) 31.7 % (20.0-45.0) Monocytes (%) (Auto) 7.4 % (1.0-10.0) 8.5 % (1.0-10.0) Eosinophils (%) (Auto) 1.1 % (0.0-3.0) 1.2 % (0.0-3.0) Basophils (%) (Auto) 1.1 % (0.0-2.0) 1.6 % (0.0-2.0) Sodium Level 138 MMOL/L (136-145) 140 MMOL/L (136-145) Potassium Level 3.5 MMOL/L (3.5-5.1) 3.4 MMOL/L (3.5-5.1) L Chloride Level 103 MMOL/L (98-107) 104 MMOL/L (98-107) Carbon Dioxide Level 27 MMOL/L (21-32) 29 MMOL/L (21-32) Anion Gap 8 mmol/L (5-15) 8 mmol/L (5-15) Blood Urea Nitrogen 10 mg/dL (7-18) 5 mg/dL (7-18) L Creatinine 0.7 MG/DL (0.55-1.30) 0.7 MG/DL (0.55-1.30) Estimat Glomerular Filtration Rate > 60 mL/min (>60) > 60 mL/min (>60) Glucose Level 122 MG/DL (74-106) H 107 MG/DL (74-106) H Calcium Level 9.5 MG/DL (8.5-10.1) 9.1 MG/DL (8.5-10.1) Total Bilirubin 0.3 MG/DL (0.2-1.0) 0.3 MG/DL (0.2-1.0) Aspartate Amino Transf (AST/SGOT) 14 U/L (15-37) L 13 U/L (15-37) L Alanine Aminotransferase (ALT/SGPT) 22 U/L (12-78) 20 U/L (12-78) Alkaline Phosphatase 48 U/L (46-116) 42 U/L (46-116) L Total Creatine Kinase 95 U/L (26-308) Creatine Kinase MB 1.7 NG/ML (0.0-3.6) Creatine Kinase MB Relative Index 1.7 Troponin I 0.000 ng/mL (0.000-0.056) Pro-B-Type Natriuretic Peptide 98 pg/mL (0-125) Total Protein 7.3 G/DL (6.4-8.2) 6.9 G/DL (6.4-8.2) Albumin 3.1 G/DL (3.4-5.0) L 3.0 G/DL (3.4-5.0) L Globulin 4.2 g/dL 3.9 g/dL Albumin/Globulin Ratio 0.7 (1.0-2.7) L 0.8 (1.0-2.7) L Urine Color Pale yellow Urine Appearance Clear Urine pH 7 (4.5-8.0) Urine Specific [place] 1.010 (1.005-1.035) Urine Protein Negative (NEGATIVE) Urine Glucose (UA) Negative (NEGATIVE) Urine Ketones Negative (NEGATIVE) Urine Blood 4+ (NEGATIVE) H Urine Nitrite Negative (NEGATIVE) Urine Bilirubin Negative (NEGATIVE) Urine Urobilinogen Normal MG/DL (0.0-1.0) Urine Leukocyte Esterase Negative (NEGATIVE) Urine RBC 10-15 /HPF (0 - 2) H Urine WBC 0-2 /HPF (0 - 2) Urine Squamous Epithelial Cells Many /LPF (NONE/OCC) H Urine Bacteria Few /HPF (NONE) Activated Partial Thromboplast Time 29 SEC (23-33) Amylase Level 104 U/L (25-115) Lipase 97 U/L (73-393) Microbiology Date/Time Source Procedure Growth Status 05/03/19 20:30 Rectum Received Height (Feet): 5 Height (Inches): 3.00 Weight (Pounds): 167 Medications Current Medications Medications (Trade) Dose Ordered Sig/Adry Route PRN Reason Start Time Stop Time Status Last Admin Dose Admin Acetaminophen (Tylenol) 650 mg Q4H PRN ORAL T>100.5 05/03/19 20:45 06/02/19 20:44 Albuterol Sulfate (Proventil MDI) 2 puff Q6H PRN INH Shortness of Breath 05/03/19 22:00 06/02/19 21:59 Dextrose (Dextrose 50%) 25 ml Q30M PRN IV Hypoglycemia 05/03/19 20:45 06/02/19 20:44 Dextrose (Dextrose 50%) 50 ml Q30M PRN IV Hypoglycemia 05/03/19 20:45 06/02/19 20:44 Dextrose/Sodium Chloride 1,000 ml @ 75 mls/hr [id number] IV 05/03/19 22:00 06/02/19 21:59 05/04/19 10:44 Diphenhydramine HCl (Benadryl) 25 mg Q6H PRN ORAL Itching/Pruritis 05/03/19 20:45 06/02/19 20:44 Heparin Sodium (Porcine) (Heparin 5000 units/ml) 5,000 units EVERY 12 HOURS SUBQ 05/03/19 21:00 06/02/19 20:59 Lisinopril (Prinivil) 20 mg DAILY ORAL 05/04/19 09:00 06/03/19 08:59 05/04/19 09:31 Morphine Sulfate (Morphine Sulfate) 2 mg Q4H PRN IVP Severe Pain (Pain Scale 7-10) 05/03/19 20:45 05/10/19 20:44 05/04/19 10:41 Nitroglycerin (Ntg) 0.4 mg Q5MIN X 3 DOSES PRN SL Prn Chest Pain 05/03/19 20:45 06/02/19 20:44 Ondansetron HCl (Zofran) 4 mg Q6H PRN IVP Nausea & Vomiting 05/03/19 20:45 06/02/19 20:44 Pantoprazole (Protonix) 40 mg DAILY IVP 05/04/19 09:00 06/03/19 08:59 05/04/19 09:31 Piperacillin Sod/ Tazobactam Sod 3.375 gm/Sodium Chloride 110 ml @ 27.5 mls/hr EVERY 8 HOURS IVPB 05/04/19 14:00 05/09/19 13:59 Polyethylene Glycol (Miralax) 17 gm HSPRN PRN ORAL Constipation 05/03/19 20:45 06/02/19 20:44 Temazepam (Restoril) 15 mg HSPRN PRN ORAL Insomnia 05/03/19 20:45 05/10/19 20:44 Assessment/Plan Problem List: (1) Postoperative ileus ICD Codes: K91.89 - Other postprocedural complications and disorders of digestive system; K56.7 - Ileus, unspecified SNOMED: 980972156 (2) S/P hysterectomy ICD Codes: Z90.710 - Acquired absence of both cervix and uterus SNOMED: 719401977, [id number], [id number] Assessment/Plan: pt adamant about having food, otherwise she is threatening to leave AMA. will start diet until the surgeon sees her. I don't think she has abscess. Gómez Muir MD May 04, 2019 13:18
[2019-05-04] MEDS ORDERED: Piperacillin/Tazobactam 3.375 GM in NS 110 ML IVPB SCH (14:00)
--- NOTE | 2019-05-04 15:10 | NUR ---
*-* INSURANCE *-* ALL AVAILABLE CLINICALS HAVE BEEN FAXED TO: [employer]ENT[employer]# [id number] NCM: AUNG P- [phone] [phone]...REVIEW/CLINICAL
--- NOTE | 2019-05-04 15:12 | NUR ---
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 97.7 HR 50 RR 16 B/P 183/89 CXR= CARDIOMEGALY CT ABD/PEL=The uterus has been removed. There is a fluid collection within the pelvis. This measures 6.8 x 3.3 x 2.4 cm. It demonstrates a thin but enhancing rim. There is wall thickening of the adjacent sigmoid colon. IS: IV BOLUS NS X 1 LITER IOHEXOL IV ADMITTED TO MED/SURG @ 2100 MED/SURG STATUS DCP RETURN HOME
--- NOTE | 2019-05-04 15:20 | NUR ---
NURSE NOTES: Made rounds with Dr. Raya. Patient informed of discharge clearance from surgery standpoint. Patient also made aware that there is no discharge order at this time until primary doctor clears patient for discharge. Patient is irritable but says she will wait for discharge.
[2019-05-04] MEDS ORDERED: Milk of Magnesia 30ml Ud ORAL PRN (15:45)
[2019-05-04] MEDS ORDERED: Milk of Magnesia 30ml Ud ORAL SCH (15:45)
--- NOTE | 2019-05-04 15:45 | History and Physical Report ---
DATE OF ADMISSION: 05/03/2019 DATE AND TIME SEEN: 05/04/2019 at 8 a.m. CONSULTANTS: 1. Gómez Muir M.D. 2. Andres Hager M.D. 3. Bartolo Raya M.D. CHIEF COMPLAINT: Abdominal pain, postop hysterectomy. BRIEF HISTORY: This is a 49-year-old female, who lives at home, 5 days postop laparoscopic hysterectomy, yesterday started developing some abdominal pain. No nausea, vomiting, or diarrhea. Pain is somewhat increased and the patient came to [place], diagnosed with the above, possible postop abscess, admitted to medical floor for further treatment. Currently, feeling little bit better. 5/10 abdominal pain. No nausea. No chest pain. No shortness of breath. PAST MEDICAL HISTORY: Include hypertension. PAST SURGICAL HISTORY: Recent hysterectomy and also trigger finger surgery bilaterally. ALLERGIES: Toradol. SOCIAL HISTORY: Positive smoke. Positive alcohol. No intravenous drug abuse. FAMILY HISTORY: Noncontributory. PHYSICAL EXAMINATION: GENERAL: Calm in bed, oriented x3, no acute distress. VITAL SIGNS: Temperature is 98 degrees, pulse 59, respirations 20, blood pressure 130/82. CARDIOVASCULAR: No murmurs. LUNGS: Distant and clear. ABDOMEN: Bowel sounds positive. Slightly tender. No guarding. No rigidity. No rebound. Soft. EXTREMITIES: No cyanosis or edema. NEUROLOGIC: The patient moves all extremities, slightly weak. LABORATORY AND DIAGNOSTIC DATA: CBC is normal. BMP shows potassium 3.4, glucose 107. Albumin 3.0. PTT is 29. Urinalysis is 4+ blood. MEDICATIONS: Protonix, Prinivil, albuterol, heparin, Tylenol, morphine, Zofran, temazepam, nitroglycerin, Zosyn. ASSESSMENT: 1. Abdominal pain, postop of hysterectomy. 2. Hypertension. 3. Malnutrition. PLAN: 1. NPO. 2. IV fluids. 3. Pain control. 4. Blood pressure control. 5. Surgery followup. 6. Continue to follow the patient. Chava Palumbo D.O. DR: PATRICIA JOB#: [id number] CC:
--- NOTE | 2019-05-04 16:00 | NUR ---
NURSE NOTES: Patient is upset and yelling at RN because she has been waiting for the doctors all day. Patient does not want to wait any longer for the doctors to finalize discharge. Patient made aware of discharge process and the importance of getting clearance from all consulting doctors. Patient continues to be upset and wants to leave. Patient was given AMA form but refused to sign and stated, "I'm not leaving against medical advice, I'm already discharged." RN explained to patient that she has not been discharged yet and it is unsafe to leave hospital without getting clearance from all doctors. Patient is upset and does not agree with RN. Patient continues to refuse to sign AMA form.
--- NOTE | 2019-05-04 16:16 | NUR ---
NURSE NOTES: Patient left hospital AMA. Patient refused to sign AMA form and is aware of the risks and benefits. Dr. Raya and Dr. Palumbo paged. Patient's name band removed. Patient instructed to follow up with primary care doctor. Patient has all belongings. No IV access. Patient left with family members.
--- NOTE | 2019-05-04 16:30 | Consultation ---
History of Present Illness General Date patient seen: May 04, 2019 Reason for Hospitalization: Chest Pain Present Illness HPI This is a 49-year-old female with history of stage I endometrial cancer status post robotic assisted hysterectomy at [facility] by Dr. Enrique. Per report patient left postoperatively AGAINST MEDICAL ADVICE from [facility] and was home but continued to have abdominal pain chest pain and therefore came to [facility] for evaluation. In emergency department was afebrile, hemodynamically stable, labs were okay. CT scan performed identified a thin rim-enhancing fluid collection in the pelvis. Patient was admitted for further care and management. Surgery was called to evaluate. Patient seen, patient evaluate, chart reviewed. Discussed care plan with patient and family were at bedside. Reviewed imaging with radiologist. Patient states that she is having some mild discomfort in the abdomen and mainly in the gastric region as well as reflux type symptoms. Furthermore she states she is been constipated and the constipation is the majority etiology of her discomfort. Has been passing flatus and tolerating a regular diet. Allergies: Coded Allergies: KETOROLAC (Verified Allergy, Unknown, Shortness of Breath, 05/03/19) throat closes up Medication History Scheduled Albuterol Sulfate (Ventolin Hfa), 2 PUFFS INH EVERY 6 HOURS Hydrochlorothiazide* (Hydrochlorothiazide*), 25 MG ORAL DAILY, (Reported) Lisinopril (Lisinopril*), 20 MG ORAL DAILY, (Reported) Discontinued Medications Amoxicillin* (Amoxil*), 500 MG ORAL THREE TIMES A DAY Discontinued Reason: Therapy completed Codeine/Promethazine Hcl* (Promethazine-Codeine Syrup*), 5 ML ORAL Q4H PRN for For Cough Discontinued Reason: Therapy completed Hydrocodone/Acetaminophen 5-325* ([place] 5-325*), 1 TAB ORAL Q6H Discontinued Reason: Therapy completed Ibuprofen* (Motrin*), 600 MG ORAL Q8H PRN for For Pain Discontinued Reason: Therapy completed Naproxen* (Naproxen*), 375 MG ORAL TWICE A DAY Discontinued Reason: Therapy completed Prednisone* (Prednisone*), 40 MG ORAL DAILY Discontinued Reason: Therapy completed Unable to Obtain Medications (Unable To Obtain Meds), (Reported) Discontinued Reason: Therapy completed Patient History History Provided By: Patient, Medical Record, PMD Healthcare decision maker Resuscitation status Advanced Directive on File Past Medical/Surgical History Past Medical/Surgical History: (1) Atypical pneumonia (2) Postoperative abscess (3) Postoperative ileus Review of Systems Review of Symptoms General ROS: no weight loss or fever Psychological ROS: no depression or mood changes, no memory loss Ophthalmic ROS: no visual changes or eye irritation ENT ROS: no nasal congestion, hearing loss, dizziness Allergy and Immunology ROS: no allergic symptoms or urticaria Hematological and Lymphatic ROS: no swollen glands, unusual bleeding or bruising Endocrine ROS: no polyuria, polydipsia, weight changes, temperature intolerance Respiratory ROS: no cough, shortness of breath, or wheezing Cardiovascular ROS: no chest pain or dyspnea on exertion Gastrointestinal ROS: abdominal pain, no bright red blood in stool. Musculoskeletal ROS: no myalgias or arthralgias Neurological ROS: no TIA or stroke symptoms Dermatological ROS: no new or changing skin lesions, rashes or pruritis Physical Exam Physical Exam General appearance: alert, cooperative, no distress, appears stated age Head: Normocephalic, without obvious abnormality, atraumatic Eyes: conjunctivae/corneas clear. PERRL, EOM's intact. Fundi benign Throat: Lips, mucosa, and tongue normal. Teeth and gums normal Neck: supple, symmetrical, trachea midline, no adenopathy, thyroid: not enlarged, symmetric, no tenderness/mass/nodules, no carotid bruit and no JVD Lungs: clear to auscultation bilaterally Heart: regular rate and rhythm, S1, S2 normal, no murmur, click, rub or gallop Abdomen: soft, non-tender. Bowel sounds normal. No masses, no organomegaly well-healed surgical wounds Extremities: extremities normal, atraumatic, no cyanosis or edema Pulses: 2+ and symmetric Skin: Skin color, texture, turgor normal. No rashes or lesions Neurologic: Grossly normal Last 24 Hour Vital Signs Date Time Temp Pulse Resp B/P (MAP) Pulse Ox O2 Delivery O2 Flow Rate FiO2 05/04/19 12:00 98.3 61 18 158/100 (119) 100 05/04/19 09:31 152/77 05/04/19 09:00 Room Air 05/04/19 08:00 97.4 54 20 152/77 (102) 100 05/04/19 04:00 98.4 59 20 130/82 (98) 98 05/03/19 23:31 98.0 95 20 152/83 (106) 99 05/03/19 21:33 Room Air 05/03/19 21:00 98.3 59 20 155/86 100 Room Air 21 05/03/19 20:45 98.3 59 20 155/86 100 Room Air 21 05/03/19 20:23 168/96 05/03/19 19:30 98.3 53 16 168/96 100 Room Air 21 05/03/19 16:37 97.7 56 16 183/89 100 Room Air 21 05/03/19 16:36 56 16 Room Air 21 05/03/19 16:31 97.7 Intake and Output 05/03/19 05/04/19 19:00 07:00 Intake Total 675 ml Output Total 500 ml Balance 175 ml Intake IV Total 675 ml Output Urine Total 500 ml # Voids 1 2 Laboratory Tests Test 05/04/19 05:20 White Blood Count 5.9 K/UL (4.8-10.8) Red Blood Count 3.80 M/UL (4.20-5.40) L Hemoglobin 12.0 G/DL (12.0-16.0) Hematocrit 36.1 % (37.0-47.0) L Mean Corpuscular Volume 95 FL (80-99) Mean Corpuscular Hemoglobin 31.6 PG (27.0-31.0) H Mean Corpuscular Hemoglobin Concent 33.2 G/DL (32.0-36.0) Red Cell Distribution Width 12.4 % (11.6-14.8) Platelet Count 230 K/UL (150-450) Mean Platelet Volume 7.6 FL (6.5-10.1) Neutrophils (%) (Auto) 57.1 % (45.0-75.0) Lymphocytes (%) (Auto) 31.7 % (20.0-45.0) Monocytes (%) (Auto) 8.5 % (1.0-10.0) Eosinophils (%) (Auto) 1.2 % (0.0-3.0) Basophils (%) (Auto) 1.6 % (0.0-2.0) Activated Partial Thromboplast Time 29 SEC (23-33) Sodium Level 140 MMOL/L (136-145) Potassium Level 3.4 MMOL/L (3.5-5.1) L Chloride Level 104 MMOL/L (98-107) Carbon Dioxide Level 29 MMOL/L (21-32) Anion Gap 8 mmol/L (5-15) Blood Urea Nitrogen 5 mg/dL (7-18) L Creatinine 0.7 MG/DL (0.55-1.30) Estimat Glomerular Filtration Rate > 60 mL/min (>60) Glucose Level 107 MG/DL (74-106) H Calcium Level 9.1 MG/DL (8.5-10.1) Total Bilirubin 0.3 MG/DL (0.2-1.0) Aspartate Amino Transf (AST/SGOT) 13 U/L (15-37) L Alanine Aminotransferase (ALT/SGPT) 20 U/L (12-78) Alkaline Phosphatase 42 U/L (46-116) L Total Protein 6.9 G/DL (6.4-8.2) Albumin 3.0 G/DL (3.4-5.0) L Globulin 3.9 g/dL Albumin/Globulin Ratio 0.8 (1.0-2.7) L Amylase Level 104 U/L (25-115) Lipase 97 U/L (73-393) Microbiology Date/Time Source Procedure Growth Status 05/03/19 20:30 Rectum Received Height (Feet): 5 Height (Inches): 3.00 Weight (Pounds): 167 Medications Current Medications Medications (Trade) Dose Ordered Sig/Adry Route PRN Reason Start Time Stop Time Status Last Admin Dose Admin Acetaminophen (Tylenol) 650 mg Q4H PRN ORAL T>100.5 05/03/19 20:45 06/02/19 20:44 Albuterol Sulfate (Proventil MDI) 2 puff Q6H PRN INH Shortness of Breath 05/03/19 22:00 06/02/19 21:59 Dextrose (Dextrose 50%) 25 ml Q30M PRN IV Hypoglycemia 05/03/19 20:45 06/02/19 20:44 Dextrose (Dextrose 50%) 50 ml Q30M PRN IV Hypoglycemia 05/03/19 20:45 06/02/19 20:44 Dextrose/Sodium Chloride 1,000 ml @ 75 mls/hr [id number] IV 05/03/19 22:00 06/02/19 21:59 05/04/19 10:44 Diphenhydramine HCl (Benadryl) 25 mg Q6H PRN ORAL Itching/Pruritis 05/03/19 20:45 06/02/19 20:44 Docusate Sodium (Colace) 100 mg TWICE A DAY ORAL 05/04/19 18:00 06/03/19 17:59 Heparin Sodium (Porcine) (Heparin 5000 units/ml) 5,000 units EVERY 12 HOURS SUBQ 05/03/19 21:00 06/02/19 20:59 Lisinopril (Prinivil) 20 mg DAILY ORAL 05/04/19 09:00 06/03/19 08:59 05/04/19 09:31 Magnesium Hydroxide (Mom) 30 ml DAILYPRN PRN ORAL Constipation 05/04/19 15:45 06/03/19 15:44 Magnesium Hydroxide (Mom) 30 ml ONCE ORAL 05/04/19 15:45 05/04/19 16:45 Morphine Sulfate (Morphine Sulfate) 2 mg Q4H PRN IVP Severe Pain (Pain Scale 7-10) 05/03/19 20:45 05/10/19 20:44 05/04/19 10:41 Nitroglycerin (Ntg) 0.4 mg Q5MIN X 3 DOSES PRN SL Prn Chest Pain 05/03/19 20:45 06/02/19 20:44 Ondansetron HCl (Zofran) 4 mg Q6H PRN IVP Nausea & Vomiting 05/03/19 20:45 06/02/19 20:44 Pantoprazole (Protonix) 40 mg DAILY IVP 05/04/19 09:00 06/03/19 08:59 05/04/19 09:31 Polyethylene Glycol (Miralax) 17 gm HSPRN PRN ORAL Constipation 05/03/19 20:45 06/02/19 20:44 Temazepam (Restoril) 15 mg HSPRN PRN ORAL Insomnia 05/03/19 20:45 05/10/19 20:44 Assessment/Plan Problem List: (1) Postoperative abscess Assessment & Plan: This is a 49-year-old female status post robotic hysterectomy for stage I endometrial cancer proximately 5 days ago who left primary hospital and surgeon AGAINST MEDICAL ADVICE now presents [facility] complaining of pain. Patient states that she was given Toradol while she was on [facility] and wanted morphine and that she has a allergy to Toradol and therefore she left. States she is been well since on the [place] she has while she is been at home but developed some abdominal discomfort and what she believes to be chest pain. States most likely related to her constipation would like some bowel regimen. Otherwise states no abdominal pain now. Tolerating regular diet. Passing flatus. Otherwise comfortable. No nausea vomiting fever chills. Labs are unremarkable. CT scan was reviewed with the radiologist. She has a fluid collection in the pelvis which is likely a postoperative seroma and given the above findings and her physical exam and clinical condition does not seem to be an abscess. There is potential for an abscess and this was discussed with patient and there is considerations for IR aspiration versus drainage but suspicion for abscess at this time is fairly low. After discussing all risk benefits and alternatives to therapies and treatments and care plan with patient we have decided to monitor clinically at this time. Patient states that she has made an appointment with her primary surgeon Dr. Enrique or May 14 and will follow-up at that time and discuss with the surgeon these findings and further follow-up to ensure seroma resolving. No acute surgical intervention recommended at this time. Will hold off on drainage. Okay for diet as tolerated. We will follow with recommendations. Of note, Patient was seen less than an hour ago and given care plan and instructions. Recommended monitoring for a little bit longer and a bowel regimen to ensure she is having good bowel function. Was just informed by the nurse at the time of writing this note the patient has left AGAINST MEDICAL ADVICE. Thank you ICD Codes: T81.49XA - Infection following a procedure, other surgical site, initial encounter SNOMED: [id number], [id number] Bartolo Raya May 04, 2019 16:29
--- NOTE | 2019-05-04 16:43 | Consultation ---
Consult Note Consult Note This is a 49-year-old female with history of stage I endometrial cancer status post robotic assisted hysterectomy at [facility] who left AMA postoperatively, now was admitted for abdominal pain CT scan showed a thin rim-enhancing fluid collection in the pelvis. and ID Cons was requested for eval of pt for possible pelvic abscess. pt has no fever, but complains of constipation and Abd distention Allergies: Coded Allergies: KETOROLAC (Verified Allergy, Unknown, Shortness of Breath, 05/03/19) throat closes up Medication History off of AB RX Past Medical/Surgical History Past Medical/Surgical History: (1) Atypical pneumonia (2) endometrial cancer status post robotic assisted hysterectomy Review of Systems Review of Systems 10 point review was done Physical Exam Physical Exam Physical Exam General appearance: alert, cooperative, no distress, appears stated age Head: Normocephalic, without obvious abnormality, atraumatic Eyes: conjunctivae/corneas clear. PERRL, EOM's intact. Fundi benign Throat: Lips, mucosa, and tongue normal. Teeth and gums normal Neck: supple, symmetrical, trachea midline, no adenopathy, thyroid: not enlarged, symmetric, no tenderness/mass/nodules, no carotid bruit and no JVD Lungs: clear to auscultation bilaterally Heart: regular rate and rhythm, S1, S2 normal, no murmur, click, rub or gallop Abdomen: mildly distended , mild tenderness all 4Qs, well-healed surgical wounds Extremities: extremities normal, atraumatic, no cyanosis or edema Pulses: 2+ and symmetric Skin: Skin color, texture, turgor normal. No rashes or lesions Neurologic: Grossly normal Last 24 Hour Vital Signs Date Time Temp Pulse Resp B/P (MAP) Pulse Ox O2 Delivery O2 Flow Rate FiO2 05/04/19 12:00 98.3 61 18 158/100 (119) 100 05/04/19 09:31 152/77 05/04/19 09:00 Room Air 05/04/19 08:00 97.4 54 20 152/77 (102) 100 05/04/19 04:00 98.4 59 20 130/82 (98) 98 05/03/19 23:31 98.0 95 20 152/83 (106) 99 05/03/19 21:33 Room Air 05/03/19 21:00 98.3 59 20 155/86 100 Room Air 21 05/03/19 20:45 98.3 59 20 155/86 100 Room Air 21 05/03/19 20:23 168/96 05/03/19 19:30 98.3 53 16 168/96 100 Room Air 21 05/03/19 16:37 97.7 56 16 183/89 100 Room Air 21 05/03/19 16:36 56 16 Room Air 21 05/03/19 16:31 97.7 Intake and Output 05/03/19 05/04/19 19:00 07:00 Intake Total 675 ml Output Total 500 ml Balance 175 ml Intake IV Total 675 ml Output Urine Total 500 ml # Voids 1 2 Laboratory Tests Test 05/04/19 05:20 White Blood Count 5.9 K/UL (4.8-10.8) Red Blood Count 3.80 M/UL (4.20-5.40) L Hemoglobin 12.0 G/DL (12.0-16.0) Hematocrit 36.1 % (37.0-47.0) L Mean Corpuscular Volume 95 FL (80-99) Mean Corpuscular Hemoglobin 31.6 PG (27.0-31.0) H Mean Corpuscular Hemoglobin Concent 33.2 G/DL (32.0-36.0) Red Cell Distribution Width 12.4 % (11.6-14.8) Platelet Count 230 K/UL (150-450) Mean Platelet Volume 7.6 FL (6.5-10.1) Neutrophils (%) (Auto) 57.1 % (45.0-75.0) Lymphocytes (%) (Auto) 31.7 % (20.0-45.0) Monocytes (%) (Auto) 8.5 % (1.0-10.0) Eosinophils (%) (Auto) 1.2 % (0.0-3.0) Basophils (%) (Auto) 1.6 % (0.0-2.0) Activated Partial Thromboplast Time 29 SEC (23-33) Sodium Level 140 MMOL/L (136-145) Potassium Level 3.4 MMOL/L (3.5-5.1) L Chloride Level 104 MMOL/L (98-107) Carbon Dioxide Level 29 MMOL/L (21-32) Anion Gap 8 mmol/L (5-15) Blood Urea Nitrogen 5 mg/dL (7-18) L Creatinine 0.7 MG/DL (0.55-1.30) Estimat Glomerular Filtration Rate > 60 mL/min (>60) Glucose Level 107 MG/DL (74-106) H Calcium Level 9.1 MG/DL (8.5-10.1) Total Bilirubin 0.3 MG/DL (0.2-1.0) Aspartate Amino Transf (AST/SGOT) 13 U/L (15-37) L Alanine Aminotransferase (ALT/SGPT) 20 U/L (12-78) Alkaline Phosphatase 42 U/L (46-116) L Total Protein 6.9 G/DL (6.4-8.2) Albumin 3.0 G/DL (3.4-5.0) L Globulin 3.9 g/dL Albumin/Globulin Ratio 0.8 (1.0-2.7) L Amylase Level 104 U/L (25-115) Lipase 97 U/L (73-393) Microbiology Date/Time Source Procedure Growth Status 05/03/19 20:30 Rectum Received Height (Feet): 5 Height (Inches): 3.00 Weight (Pounds): 167 Medications Current Medications Medications (Trade) Dose Ordered Sig/Adry Route PRN Reason Start Time Stop Time Status Last Admin Dose Admin Acetaminophen (Tylenol) 650 mg Q4H PRN ORAL T>100.5 05/03/19 20:45 06/02/19 20:44 Albuterol Sulfate (Proventil MDI) 2 puff Q6H PRN INH Shortness of Breath 05/03/19 22:00 06/02/19 21:59 Dextrose (Dextrose 50%) 25 ml Q30M PRN IV Hypoglycemia 05/03/19 20:45 06/02/19 20:44 Dextrose (Dextrose 50%) 50 ml Q30M PRN IV Hypoglycemia 05/03/19 20:45 06/02/19 20:44 Dextrose/Sodium Chloride 1,000 ml @ 75 mls/hr [id number] IV 05/03/19 22:00 06/02/19 21:59 05/04/19 10:44 Diphenhydramine HCl (Benadryl) 25 mg Q6H PRN ORAL Itching/Pruritis 05/03/19 20:45 06/02/19 20:44 Docusate Sodium (Colace) 100 mg TWICE A DAY ORAL 05/04/19 18:00 06/03/19 17:59 Heparin Sodium (Porcine) (Heparin 5000 units/ml) 5,000 units EVERY 12 HOURS SUBQ 05/03/19 21:00 06/02/19 20:59 Lisinopril (Prinivil) 20 mg DAILY ORAL 05/04/19 09:00 06/03/19 08:59 05/04/19 09:31 Magnesium Hydroxide (Mom) 30 ml DAILYPRN PRN ORAL Constipation 05/04/19 15:45 06/03/19 15:44 Magnesium Hydroxide (Mom) 30 ml ONCE ORAL 05/04/19 15:45 05/04/19 16:45 Morphine Sulfate (Morphine Sulfate) 2 mg Q4H PRN IVP Severe Pain (Pain Scale 7-10) 05/03/19 20:45 05/10/19 20:44 05/04/19 10:41 Nitroglycerin (Ntg) 0.4 mg Q5MIN X 3 DOSES PRN SL Prn Chest Pain 05/03/19 20:45 06/02/19 20:44 Ondansetron HCl (Zofran) 4 mg Q6H PRN IVP Nausea & Vomiting 05/03/19 20:45 06/02/19 20:44 Pantoprazole (Protonix) 40 mg DAILY IVP 05/04/19 09:00 06/03/19 08:59 05/04/19 09:31 Polyethylene Glycol (Miralax) 17 gm HSPRN PRN ORAL Constipation 05/03/19 20:45 06/02/19 20:44 Temazepam (Restoril) 15 mg HSPRN PRN ORAL Insomnia 05/03/19 20:45 05/10/19 20:44 Assessment/Plan A: Afebrile nl WBC Abd pain ( m/l due to constipation ) fluid collection , less likely abscess , m/l post-op seroma P: ok to DC off of AB Rx from ID point, if cleared by Surg Monitor CBC, CMP Monitor blood CX Thank you, we will follow Andres Hager MD May 04, 2019 16:42
[2019-05-04] MEDS ORDERED: Docusate 100mg cap ORAL SCH (18:00)
--- NOTE | 2019-05-04 21:09 | Discharge Summary ---
Discharge Summary Discharge Summary _ DATE OF ADMISSION: 05/03/2019 DATE OF DISCHARGE: 05/04/2019 Patient left AGAINST MEDICAL ADVICE REASON FOR ADMISSION: 49 years old female with past medical history of hypertension , presented to emergency department for evaluation with complaint of abdominal pain for 1 day. Patient reported having hysterectomy 5 days ago at [facility]. She denied fever and chills. Patient reported shortness of breath while walking. Patient reported history of asthma. She denied cough. She denied nausea and vomiting. No diarrhea. Upon evaluation blood pressure was elevated 183/89, heart rate was 50. Laboratory work-up revealed no leukocytosis, stable hemoglobin and hematocrit , stable electrolytes. Troponin negative. EKG revealed sinus bradycardia, no acute ischemic changes. Chest x-ray revealed no acute cardiopulmonary pathology. CTA of the chest, abdomen, pelvis revealed no evidence of pulmonary emboli. 6.8 x 3.3 x 2.4 cm fluid collection in the pelvis, probably postoperative seroma , given recent hysterectomy, but possibility of abscess could not completely ruled out. Patient started on empiric antibiotics and admitted for further management. CONSULTANTS: hospitalist Dr. Muir ID specialist Dr. Hager surgery Dr. Raya [facility] COU[facility]SE: Patient admitted to medical surgical floor. Surgeon seen and evaluated patient . Surgeon personally reviewed CT scan. Patient had fluid collection in the pelvis, likely postoperative seroma. Given clinical findings and physical examination as well as the clinical condition, unlikely patient had an abscess, as per surgeon. All concerns were discussed with patient, including consideration by interventional radiology aspiration versus drainage. However, suspicion for abscess at this time was fairly low. After discussing care plan with the patient, decision was made to monitor patient clinically at this time. Patient reported that she has an appointment with her primary surgeon on May 14 and will follow-up . No acute surgical intervention was recommended at this time. Surgeon recommended to hold off on drainage at this time. Pain management was addressed as tolerated. Symptomatic care provided. Patient started on diet as tolerated, and was able to tolerate it. Pulse oximetry was stable on room air, CXR was unremarkable,as mentioned above. No evidence of respiratory distress. Infectious disease specialist seen the patient as well. Patient remained afebrile, no leukocytosis . Abdominal pain was possibly due to constipation. Fluid collection was less likely abscess , and more likely postoperative seroma as per ID specialist. No need for antibiotics . Bowel regimen instituted to ensure good bowel function. Patient decided to leave gn AGAINST MEDICAL ADVICE . She refused to sign AMA form. The risks and consequences of signing AGAINST MEDICAL ADVICE were discussed with patient in detail. Patient verbalized understanding, nevertheless she left. Patient stated that she will follow up with surgeon as scheduled. FINAL DIAGNOSES: Abdominal pain, likely due to constipation Postoperative fluid collection, likely seroma Status post recent hysterectomy I have been assigned to dictate discharge summary for this account. I was not involved in the patient's management. Alondra Copeland NP May 04, 2019 21:09
--- NOTE | 2019-05-06 14:57 | NUR ---
*-* INSURANCE *-* ALL AVAILABLE CLINICALS HAVE BEEN FAXED TO: [facility] [facility]# [id number] NCM: AUNG P- [phone] [phone]...REVIEW/CLINICAL
== END 2019-05-04 16:36 | disposition left against medical advice (07) | DRG 813 ==
LOC: EMR 15:02 → 3E 18:51 → EDBEDREQ 19:00 → OBSVTOIN 21:06 → 3E 21:23
DX: N99.842 Postprocedural seroma of a genitourinary system organ or structure following a genitourinary system procedure (principal); Y83.8 Other surgical procedures as the cause of abnormal reaction of the patient, or of later complication, without mention of misadventure at the time of the procedure; K59.00 Constipation, unspecified; K56.7 Ileus, unspecified; E46 Unspecified protein-calorie malnutrition; I10 Essential (primary) hypertension; Z90.710 Acquired absence of both cervix and uterus; Z88.8 Allergy status to other drugs, medicaments and biological substances; Z85.42 Personal history of malignant neoplasm of other parts of uterus
CPT/HCPCS: 36415; 71045; 71260; 74177; 80053; 81003; 82150; 82550; 82553; 83690; 83880; 84484; 85025; 85730; 87081; 93005; 94640; 94664; 96365; 96375; 96376; 99285; J2405; J8499